=== PATIENT | male | born 2000 | race Caucasian/White ===

== ENCOUNTER 2023-05-23 15:55 | Emergency (ER) | payer BC ==
[2023-05-23] MEDS ORDERED: Diphtheria,Pertussis(Acell),Tetanus Vaccine 0.5 ML Syringe IM ONE (16:38)
== END 2023-05-23 19:09 | disposition home or self-care (01) ==
LOC: MW.ED 15:55
DX: S01.01XA Laceration without foreign body of scalp, initial encounter (principal); W22.8XXA Striking against or struck by other objects, initial encounter
CPT/HCPCS: 12001; 12002; 70450; 70450-26; 99283

== ENCOUNTER 2023-06-08 11:22 | Emergency (ER) | payer BC | END 2023-06-08 12:08 | disposition left against medical advice (07) | LOC: MW.ED 11:22 | DX: Z48.02 Encounter for removal of sutures (principal) | CPT/HCPCS: 99281 ==